=== PATIENT | female | born 1990 | race African-American/Black ===

== ENCOUNTER 2022-01-27 22:58 | Emergency (ER) | payer MEDICAID ==
[~2022-01-27] VITALS: Ht 170.2 cm; Wt 69.2 kg
[2022-01-27] MEDS ORDERED: ALBUTEROL (0.083%) 2.5MG/3ML NEB HHN STA (23:33)
[2022-01-27] MEDS ORDERED: PREDNISONE 20MG TABLET PO STA (23:33)
[2022-01-27] MEDS ORDERED: IPRATROPIUM BROMIDE (0.02%) 0.5MG/2.5ML NEB HHN STA (23:33)
[2022-01-27] MEDS ORDERED: MAGNESIUM 2 G PREMIX 50 ML IV ONE (23:45)
[2022-01-28 02:49] VITALS: BP 126/65
== END 2022-01-28 03:01 | disposition home or self-care (01) ==
LOC: ER 22:58
DX: J45.901 Unspecified asthma with (acute) exacerbation (principal)
CPT/HCPCS: 93005; 94640; 96365; 99291; J3475; J7512; Z7610

== ENCOUNTER 2022-04-13 15:09 | Emergency (ER) | payer MEDICAID, OTHER ==
[~2022-04-13] VITALS: Ht 167.6 cm; Wt 65.0 kg
[2022-04-13 15:37] VITALS: BP 136/71
[2022-04-13] MEDS ORDERED: PREDNISONE 20MG TABLET PO ONE (15:45)
[2022-04-13] MEDS ORDERED: ALBUTEROL 6.7GM HFA INHALER ORI ONE (15:45)
[2022-04-13] MEDS ORDERED: ALBU18HF2 IH (15:47)
[2022-04-13] MEDS ORDERED: P20 MT (15:47)
== END 2022-04-13 16:00 | disposition home or self-care (01) ==
LOC: ER 15:09
DX: J45.901 Unspecified asthma with (acute) exacerbation (principal)
CPT/HCPCS: 93005; 94640; 99283; J7512; Z7610

== ENCOUNTER 2022-07-30 12:09 | Emergency (ER) | payer MEDICAID ==
[~2022-07-30] VITALS: Ht 162.6 cm; Wt 73.0 kg
[~2022-07-30 12:09] MED LIST: ALBU18HF2 IH; P20 MT
[2022-07-30] MEDS ORDERED: PREDNISONE 20MG TABLET PO STA (12:40)
[2022-07-30] MEDS ORDERED: ALBUTEROL (0.083%) 2.5MG/3ML NEB HHN STA (12:40)
[2022-07-30] MEDS ORDERED: IPRATROPIUM BROMIDE (0.02%) 0.5MG/2.5ML NEB HHN STA (12:40)
[2022-07-30] MEDS ORDERED: P20 MT (14:24)
[2022-07-30] MEDS ORDERED: ALBU6.7H9 INH (14:24)
[2022-07-30] MEDS ORDERED: ALBU05 NEB (14:24)
[2022-07-30 14:49] VITALS: BP 119/67
== END 2022-07-30 14:55 | disposition home or self-care (01) ==
LOC: ER 12:09
DX: J45.901 Unspecified asthma with (acute) exacerbation (principal)
CPT/HCPCS: 93005; 94644; 99285; J7512; Z7610